=== PATIENT | female | born 1970 | race Caucasian/White ===

== ENCOUNTER → 2017-11-21 | Day surgery (SDC) | payer OTHER ==
[2017-11-17 08:27] VITALS: BMI 29.9
[~2017-11-21] MED LIST: DEXAMETHASONE SOD PHOSPHATE 10 MG/ML 1 ML VIAL IV ONE; HYDROcodone/APAP 5-325MG 1 EACH TAB PO ONE; HYDROmorphone 0.5 MG/0.5 ML SYRINGE IVP PRN; KETAMINE 10 MG/ML 20 ML VIAL ONE; LACTATED RINGERS 1,000 ML IV SCH; LIDOCAINE 1% 20 ML VIAL (10MG/ML) FOR IV START INTRADERMA ONE; MIDAZOLAM 2 MG/2 ML VIAL ONE; ONDANSETRON 4 MG/2 ML VIAL IVP ONE; PROPOFOL 10 MG/ML 20 ML VIAL IV ONE; fentaNYL (PF) 50 MCG/ML 2 ML AMP ONE
--- NOTE | 2017-11-21 06:20 | XR ---
EXAMINATION TYPE: XR KUB DATE OF EXAM: 11/21/2017 COMPARISON: NONE HISTORY: Pain TECHNIQUE: 2 views FINDINGS: Pelvic ring is intact. I see no definite pathologic calcifications over the kidneys. Bowel gas pattern is normal. There is no sign of intestinal obstruction or pneumoperitoneum. Lung bases are clear. There is no sign of a mass. Fecal pattern is normal. IMPRESSION: Nonacute abdomen. There could be a 3 mm faint calcification in the lower pole left kidney .
[2017-11-21 06:32] VITALS: RESP 16; TEMP 97.9
--- NOTE | 2017-11-21 06:42 | P.GSHP ---
History of Present Illness H&P Date: 11/21/17 Chief Complaint: Left flank discomfort The patient is a 47 year old WF with a history of urolithiasis. She recently reports left flank discomfort, and a KUB x-ray shows a 3 mm LLP renal calculus. She is also being treated for interstitial cystitis. - Genitourinary (Male) Genitourinary: Reports kidney stones, Denies dysuria, Denies hematuria Past Medical History Past Medical History: Renal Disease Additional Past Medical History / Comment(s): interstitial cystitis, kidney stones History of Any Multi-Drug Resistant Organisms: None Reported Past Surgical History: Tonsillectomy Additional Past Surgical History / Comment(s): skin cancer from skin, d&c, laproscopies, lithotripsy, plantar fasciotomy lt Past Anesthesia/Blood Transfusion Reactions: Postoperative Nausea & Vomiting ( PONV) Smoking Status: Never smoker - Past Family History Mother Family Medical History: No Reported History Medications and Allergies Home Medications Medication Instructions Recorded Confirmed Type Elmiron (Bladder Infusion) 100 mg IRRIGATION Q30D 11/17/17 11/17/17 History Pentosan Polysulfate Sodium 100 mg PO DAILY 11/17/17 11/17/17 History [Elmiron] Allergies Allergy/AdvReac Type Severity Reaction Status Date / Time levofloxacin [From Levaquin] Allergy Anaphylaxis Verified 11/17/17 08:15 Surgical - Exam - General well developed, well nourished, no distress - Respiratory normal respiratory effort, clear to auscultation - Cardiovascular Rhythm: regular Abnormal Heart Sounds: no systolic murmur, no diastolic murmur, no rub, no S3 Gallop, no S4 Gallop, no click, no other - Abdomen Abdomen: soft, non tender, no guarding, no rigid, no rebound - Psychiatric oriented to time, oriented to person, oriented to place, speech is normal, memory intact Assessment and Plan (1) Calculus of kidney Current Visit: Yes Status: Acute Code(s): N20.0 - CALCULUS OF KIDNEY SNOMED Code(s): 91568202 Plan: Left ESWL. The procedure has been reviewed in detail with the patient. Risks include anesthesia, renal contusion, hematuria, perinephric hematoma, treatment failure, and steinstrasse. She also understands the possibility that the procedure cannot be done, if the calculus cannot be seen radiographically.
--- NOTE | 2017-11-21 08:29 | P.OP ---
Date of Procedure: 11/21/17 Preoperative Diagnosis: Left renal calculus Postoperative Diagnosis: Same Procedure(s) Performed: Left extracorporal shockwave lithotripsy (ESWL) Anesthesia: MAC Surgeon: Darren Apodaca Estimated Blood Loss (ml): 0 IV fluids (ml): 800 Pathology: none sent Condition: stable Disposition: PACU Indications for Procedure: The patient is a 47 year old WF with a history of urolithiasis. She recently reports left flank discomfort, and a KUB x-ray shows a 3 mm LLP renal calculus. Alternative treatment options were reviewed, and she elects to undergo ESWL. Operative Findings: The calculus appears to fragment. Description of Procedure: The patient was taken to the operating room and placed on the [employer] lithotripter in the supine position. The calculus was seen on biplanar fluoroscopy. Once the patient was properly positioned and sedated, lithotripsy was performed. The energy level was gradually increased per protocol, to an energy level of 4. After 200 shocks were administered, a 2 minute pause was instituted per protocol. A total of 2500 shocks were given at a rate of 80 shocks per minute. Fluoroscopy was utilized at a minimum to ensure proper positioning and determine the treatment status. The appearance of the calculus appeared to change, suggesting fragmentation had occurred. The patient tolerated the procedure well was taken to the recovery room in stable condition. Instructions were given to strain the urine, and the patient will follow-up within one week.
[2017-11-21 08:49] VITALS: BP 135/88; PULSE 86
== END | disposition home or self-care (01) ==
LOC: ORWHC2ENDO 05:51
PROVIDERS: ATTEND Urology
DX: N20.0 Calculus of kidney (principal); Z87.442 Personal history of urinary calculi; Z79.899 Other long term (current) drug therapy; Z88.1 Allergy status to other antibiotic agents; N30.10 Interstitial cystitis (chronic) without hematuria; F41.9 Anxiety disorder, unspecified
CPT/HCPCS: 74018; 50590; J2250; J1100; J2405; J3010; J2704